=== PATIENT | female | born 1950 | race Hispanic/Latino ===

== ENCOUNTER → 2019-07-06 | Day surgery (SDC) | payer MEDICARE ==
--- NOTE | 2019-07-04 10:29 | Diagnostic Imaging Report ---
Chest, 2 views, 07/04/2019. History: Preop, right shoulder surgery. Comparison: None available. Findings: The cardiomediastinal silhouette and pulmonary vasculature are within normal limits. The lungs are clear without evidence of consolidation or pleural effusion. Mild degenerative changes are present within the thoracic spine. There are no acute osseous or soft tissue abnormalities. Impression: No acute cardiopulmonary abnormality. Signed by: Chip Terrazas on 07/04/2019 10:25 AM
[2019-07-04 11:01] LABS: BASOPHILS # (AUTO) 0.1 (0.0-0.1); BASOPHILS % 0.7 % (0.0-1.0); EOSINOPHILS # (AUTO) 0.1 (0.0-0.4); EOSINOPHILS % 1.9 % (0.0-6.0); HEMATOCRIT 38.7 % (34.2-44.1); HEMOGLOBIN 12.7 g/dL (12.0-16.0); LYMPHOCYTES % 29.4 % (18.0-39.1); MEAN CORPUSCULAR HEMOGLOBIN 30.5 pg (28-32); MEAN CORPUSCULAR HGB CONC 32.8 g/dL (31-35); MONOCYTES # (AUTO) 0.6 (0.2-0.8); MONOCYTES % 9.3 % (4.4-11.3); NEUTROPHILS % 58.4 % (38.7-80.0); PLATELET COUNT 296 x10e3/uL (140-360); RED BLOOD COUNT 4.16 x10e6/uL (3.6-5.1); RED CELL DISTRIBUTION WIDTH 12.3 % (11.7-14.4)
[~2019-07-06] MED LIST: CEFAZOLIN SOD 1 GM/NS 50ML 100 ML IV ONE; DEXAMETHASONE SOD PHOS INJ 4 MG/ML VIAL ONE; EPINEPHRINE 1 MG/ML 30ML VIAL ONE; FENTANYL CITRATE/PF 100MCG/2 ML INJ ONE; FOSAMAX70 MG PO; GLYCOPYRROLATE INJ 1MG/ 5 ML SYR ONE; KETOROLAC TROMETHAMINE 30 MG/ML VIAL ONE; LIDOCAINE 2%/ EPINEPHRINE 20ML MDV ONE; LIDOCAINE HCL 2% LOCAL INJ 5 ML SDV VIAL INJ ONE; METOCLOPRAMIDE HCL 10 MG/2ML VIAL ONE; MIDAZOLAM HCL 2 MG/2 ML VIAL ONE; NEOSTIGMINE 5 MG/5ML SYR ONE; ONDANSETRON HCL INJ 2MG/ML 2ML 2 MG/ML VIAL ONE; PHENYLEPHRINE HCL 1% 10 MG/ML VIAL ONE; PROPOFOL IV EMULSION 10 MG/ML 20 ML VIAL ONE; ROCURONIUM BROMIDE 10 MG/ML 5ML VIAL ONE; ROPIVACAINE 0.5% 5 MG/ML 30 ML SDV ONE; SEVOFLURANE INHAL SOLN 250 ML PEN BTL ONE
--- OUTSIDE RECORDS SUMMARY | 2019-07-06 07:25 | XMS REPORT ---
Author Author [facility] Address Unknown Phone Unavailable Care Team Providers Care Assembly Line Worker Name Role Phone SHARRON BROCK Unavailable Unavailable Problems This patient has no known problems. Allergies, Adverse Reactions, Alerts This patient has no known allergies or adverse reactions. Medications This patient has no known medications. Results Test Description Test Time Test Comments Text Results Atomic Results Result Comments CHEST 2 VIEWS 2019-07-04 10:24:00 [place] [address] Patient Name: TANA PINA MR #: [id number] : 1950 Age/Sex: 68/F Req #: [id number] Adm Physician: Ordered by: SHARRON BROCK MD Report #: [id number] Location: OR Room/Bed: Procedure: [id number] DX/CHEST 2 VIEWS Exam Date: 07/04/19 Exam Time: 0950 REPORT STATUS: Signed Chest, 2 views, 07/04/2019. History: Preop, right shoulder surgery. Comparison: None available. Findings: The cardiomediastinal silhouette and pulmonary vasculature are within normal limits. The lungs are clear without evidence of consolidation or pleural effusion. Mild degenerative changes are present within the thoracic spine. There are no acute osseous or soft tissue abnormalities. Impression: No acute cardiopulmonary abnormality. Signed by: Ron Terrazas on 07/04/2019 10:25 AM Dictated By: RON TERRAZAS MD 1025 Transcribed By: RIOS on 07/04/19 1025 COPY TO: SHARRON BROCK MD
[2019-07-06 14:25] VITALS: BP 110/70
--- NOTE | 2019-07-07 00:44 | Operative Report ---
DATE OF PROCEDURE: 07/06/2019 SURGEON: Gwyn Malagon MD PREOPERATIVE DIAGNOSES: Right shoulder rotator cuff tear, right shoulder acromioclavicular joint arthrosis. POSTOPERATIVE DIAGNOSES: Right shoulder rotator cuff tear, right shoulder synovitis, right shoulder chondromalacia of the glenoid, right shoulder partial biceps tendon tear, right shoulder acromioclavicular joint arthritis. OPERATION/PROCEDURE PERFORMED: The patient underwent a right shoulder examination under anesthesia, right shoulder arthroscopy, right shoulder debridement of synovitis, right shoulder chondroplasty of the glenoid, right shoulder debridement of a partial biceps tendon tear, right shoulder arthroscopic rotator cuff reconstruction, right shoulder arthroscopic subacromial decompression and acromioplasty, right shoulder arthroscopic distal clavicle resection. PARTY PLAN DEALER: KAITLIN Yusuf. ANESTHESIA: General endotracheal intubation anesthesia. IV FLUIDS: Per the Anesthesia record. DESCRIPTION OF PROCEDURE: Ms. Ramsey was taken to the operating room, placed in the supine position on the operating table. Following induction of general anesthesia as well as endotracheal intubation, the patient's right shoulder was examined under anesthesia. She was found to have full passive range of motion of the shoulder joint. She had no evidence of instability. There was no gross abnormality. The patient's shoulder and upper extremity were prepped and draped in a standard surgical fashion. Standard posterior lateral and anterior portals were created without difficulty. The scope was placed within the shoulder joint atraumatically. Examination of the glenohumeral articulation demonstrated chondromalacia of the glenoid surface. There were no loose bodies in the shoulder joint. The biceps tendon was contained within the shoulder, but there was partial tearing of the biceps beginning at its insertion into the glenoid and extending into the intra-articular portion of the biceps tendon. There was also a full-thickness rotator cuff tear along the leading edge of the rotator cuff. There was diffuse synovitis within the shoulder. The shaver was placed within the shoulder and synovitis was debrided. The biceps tendon injury was also debrided at this time. The shaver was also used to provide a chondroplasty of the glenoid surface. The shaver was then used to debride the rotator cuff injury. The insertion site for the rotator cuff was also debrided at this time to a bleeding bony bed. The shoulder was inflated with sterile normal saline. The scope was transferred to the subacromial space. A lateral portal was created through an outside in technique. Significant bursal inflammation was encountered. A bursectomy was performed. The rotator cuff injury was easily identified. A shaver was used to further debride the insertion site of the rotator cuff tissue to a bleeding bony bed. Assessment, the rotator cuff injury demonstrated a combination of [id number] tearing as well as tearing away from the greater tuberosity. A combination repair including [id number] repair plus suture anchor repair was therefore undertaken. An accessory anterior lateral port was created. The FiberWire suture was then passed in a [id number] fashion through the rotator cuff, drawing the rotator cuff tissue together. A triple-loaded suture anchor was then inserted into the greater tuberosity of the humerus. The suture arms from that anchor were then woven through the rotator cuff tissue. The rotator cuff tissue was then advanced into its normal insertion site and tied firmly. This resulted in complete reapproximation of the rotator cuff injury into the greater tuberosity. A shaver was used to complete a bursectomy. The coracoacromial ligament was then resected. There was a downward sloping acromion. An aggressive acromioplasty was performed at this time. The shoulder was placed through range of motion and there was no impingement of the rotator cuff tissue on the undersurface of the acromion. Attention was then turned to the patient's acromioclavicular joint. The anterior portal was transferred into the subacromial space at the level of the AC joint. The shaver was transferred to the anterior portal and a 1 cm section of the distal clavicle was resected using the shaver. The scope was then transferred to the anterior portal confirming complete resection of the distal edge of the clavicle. The shoulder was inflated with sterile normal saline. The portal sites were closed in a multilayer fashion. Sterile dressings were applied. The patient was provided a shoulder immobilizer, awakened, and taken to the postanesthesia care in stable condition. Fartun Workman acted as first coat operator for this case and was necessary for both prepping and draping the patient as well as the positioning of the arm and passage of the suture that allowed this case to be successful. MD LEAH Cordova/MODL /[id number]
== END | disposition home or self-care (01) ==
LOC: OR 07:22
PROVIDERS: ATTEND Specialist
DX: M75.111 Incomplete rotator cuff tear or rupture of right shoulder, not specified as traumatic (principal); M19.011 Primary osteoarthritis, right shoulder; M65.811 Other synovitis and tenosynovitis, right shoulder; M94.211 Chondromalacia, right shoulder; S46.211A Strain of muscle, fascia and tendon of other parts of biceps, right arm, initial encounter; X58.XXXA Exposure to other specified factors, initial encounter; Z01.810 Encounter for preprocedural cardiovascular examination; Z01.812 Encounter for preprocedural laboratory examination; Z01.818 Encounter for other preprocedural examination; Z68.38 Body mass index [BMI] 38.0-38.9, adult
CPT/HCPCS: 29824; 29826; 29827; 36415; 71046; 85025; 93005; C1713; J0690; J1100; J1885; J2001 ×2; J2250; J2370; J2405; J2704; J2765; J2795; J3010; J3490

== ENCOUNTER → 2021-06-06 | Outpatient (CLI) | payer MEDICARE, OTHER ==
[~2021-06-06] MED LIST changes: -CEFAZOLIN SOD 1 GM/NS 50ML 100 ML IV ONE; -DEXAMETHASONE SOD PHOS INJ 4 MG/ML VIAL ONE; -EPINEPHRINE 1 MG/ML 30ML VIAL ONE; -FENTANYL CITRATE/PF 100MCG/2 ML INJ ONE; -GLYCOPYRROLATE INJ 1MG/ 5 ML SYR ONE; -KETOROLAC TROMETHAMINE 30 MG/ML VIAL ONE; -LIDOCAINE 2%/ EPINEPHRINE 20ML MDV ONE; -LIDOCAINE HCL 2% LOCAL INJ 5 ML SDV VIAL INJ ONE; -METOCLOPRAMIDE HCL 10 MG/2ML VIAL ONE; -MIDAZOLAM HCL 2 MG/2 ML VIAL ONE; -NEOSTIGMINE 5 MG/5ML SYR ONE; -ONDANSETRON HCL INJ 2MG/ML 2ML 2 MG/ML VIAL ONE; -PHENYLEPHRINE HCL 1% 10 MG/ML VIAL ONE; -PROPOFOL IV EMULSION 10 MG/ML 20 ML VIAL ONE; +REGADENOSON 0.4 MG/5 ML SYR IV ONE; -ROCURONIUM BROMIDE 10 MG/ML 5ML VIAL ONE; -ROPIVACAINE 0.5% 5 MG/ML 30 ML SDV ONE; -SEVOFLURANE INHAL SOLN 250 ML PEN BTL ONE
== END ==
LOC: NM 09:13
PROVIDERS: ATTEND Internal Medicine Interventional Cardiology
DX: I20.9 Angina pectoris, unspecified (principal)
CPT/HCPCS: 78452; 93017; 93306; A9502; J2785